=== PATIENT | male | born 2000 ===

== ENCOUNTER 2022-06-10 15:10 | Emergency (ER) | payer OTHER, MEDICAID, SELFPAY ==
[2022-06-10 15:28] VITALS: BP 144/75; PULSE 80; RESP 16; TEMP 35.9; O2SAT 98; BMI 21.2
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
[2022-06-10 18:37] LABS: Appearance Urine Cloudy (Clear); Bilirubin Urine Negative (Negative); Blood Urine Negative (Negative); Color Urine Yellow (Yellow); Glucose Urine Negative (Negative); Ketones Urine Negative (Negative); Leukocyte Esterase Urine Negative (Negative); Nitrite Urine Negative (Negative); Protein Urine Negative (Negative); Specific Gravity Urine 1.025 (1.000-1.030)
[2022-06-10 18:37] LABS: Basophils Absolute Auto 0.03 K/uL (0.00-0.30); Basophils Percent Auto 0.4 % (0.0-3.0); Eosinophils Absolute Auto 0.09 K/uL (0.00-0.50); Eosinophils Percent Auto 1.3 % (0.0-7.0); Hematocrit 46.5 % (37.0-53.0); Hemoglobin* 15.8 gm/dL (13.5-17.5); Lymphocytes Absolute Auto 2.43 K/uL (0.90-2.90); Lymphocytes Percent Auto 35.2 % (20-44); Mean Corpuscular HGB Conc 34 gm/dL (32-36); Mean Corpuscular Hemoglobin 30 pg (26-34); Mean Corpuscular Volume 88 fL (80-100); Monocytes Percent Auto 5.6 % (0.0-11.0); Neutrophils Absolute Auto 3.97 K/uL (1.7-7.0); Neutrophils Percent Auto 57.5 % (42.0-72.0); Platelet Count* 243 K/uL (140-440); RDW Coefficient of Variation % 12.9 % (11.5-15.5); Red Blood Count 5.27 m/uL (4.30-5.90); White Blood Count* 6.91 K/uL (4.50-11.00)
[2022-06-10 18:39] LABS: Slide Review Reflex No
[2022-06-10 18:49] LABS: Amorphous Sediment Urine Few; RBC Urine 0-2 (0-2); Squamous Epithelial Cell Urine Few (None-Few); WBC Urine 0-2 (0-5)
[2022-06-10 18:50] LABS: Albumin* 5.5 g/dL (3.3-5.0); Chloride* 103 mmol/L (96-114); Potassium* 3.9 mmol/L (3.6-5.1); Sodium* 141 mmol/L (135-149)
[2022-06-10 18:53] LABS: Alkaline Phosphatase* 100 U/L (40-150); Aspartate Amino Transferase* 46 U/L (12-35); Bilirubin Total* 1.8 mg/dL (0.1-1.5); Blood Urea Nitrogen* 13 mg/dL (5-24); Carbon Dioxide* 26 mmol/L (20-32); Creatinine* 0.7 mg/dL (0.5-1.5); Est. Creatinine Clearance* 176.71; Estimated Glomerular Filt Rate 134 ml/min; Glucose* 93 mg/dL (60-115); Total Protein* 8.5 g/dL (6.0-8.3)
[2022-06-10 18:54] LABS: Alanine Aminotransferase* 29 U/L (4-50); Calcium* 9.7 mg/dL (8.4-10.6)
[2022-06-10 19:35] VITALS: BP 123/64; PULSE 72; RESP 16; O2SAT 99
== END 2022-06-10 19:36 | disposition home or self-care (01) ==
PROVIDERS: Emergency Provider Family Medicine
DX: S16.1XXA Strain of muscle, fascia and tendon at neck level, initial encounter (principal); V44.5XXA Car driver injured in collision with heavy transport vehicle or bus in traffic accident, initial encounter
CPT/HCPCS: 36415; 72040; 74177; 80053; 81001; 85025; 99284; 99285; Q9967